=== PATIENT | male | born 1950 | race Caucasian/White ===

== ENCOUNTER 2016-08-08 17:51 | Inpatient (IN) | payer OTHER ==
[~2016-08-08] VITALS: Ht 172.7 cm; Wt 85.0 kg
[~2016-08-08 17:51] MED LIST: CIPROFLOXACIN500 MG PO; PREDNICOT20 MG PO; ROBAXIN750 MG PO; VIBRAMYCIN100 MG PO
[2016-08-08 17:56] VITALS: BP 137/77
[2016-08-08] MEDS ORDERED: VENTOLIN H0.09 MG/AC INH (17:58)
[2016-08-08 18:37] LABS: BASO # 0.1 10*3/uL (0.0-0.1); BASO % 0.9 % (0.0-1.0); EOS # 0.3 10*3/uL (0.0-0.4); HEMATOCRIT 45.6 % (42.0-52.0); HEMOGLOBIN 15.7 g/dl (14.0-18.0); IG # 0.1 10*3/uL (0.0-0.1); LYMPH # 4.6 10*3/uL (1.3-4.4); LYMPH % 32.9 % (27.0-41.0); MEAN CELL VOLUME 96.2 fl (80.0-94.0); MEAN CORPUSCULAR HGB 33.1 pg (27.0-31.0); MEAN CORPUSCULAR HGB CONC 34.4 g/dl (33.0-37.0); MONO # 1.1 10*3/uL (0.1-1.0); NEUT # 7.7 10*3/uL (2.3-7.9); NEUT % 55.8 % (47.0-73.0); PLATELET COUNT AUTOMATED 337 10*3/uL (130-400); RED BLOOD COUNT 4.74 10*6/uL (4.50-5.90); RED CELL DISTRI WIDTH 13.2 % (0-14.5); WHITE BLOOD COUNT 13.8 10*3/uL (4.8-10.8)
[2016-08-08 18:52] LABS: ALBUMIN 3.6 gm/dl (3.1-4.5); ALKALINE PHOSPHATASE 86 U/L (45-117); BILIRUBIN, TOTAL 0.2 mg/dl (0.2-1.0); BUN 13 mg/dl (7-24); C-REACTIVE PROTEIN 2.39 MG/DL (0-0.3); CARBON DIOXIDE 24 mmol/L (21-32); CHLORIDE 107 mmol/L (98-107); EST GLOM FILT AFRICAN AMERICAN > 60 ml/min; GLUCOSE 82 mg/dL (65-99); POTASSIUM 4.1 mmol/L (3.5-5.1); SGOT/AST 18 IU/L (3-35); SGPT/ALT 25 U/L (12-78); SODIUM 142 mmol/L (136-145); TOTAL PROTEIN 7.4 gm/dL (6.4-8.2)
[2016-08-08 18:52] LABS: BILIRUBIN NEGATIVE (NEGATIVE); BLOOD 2+ (NEGATIVE); CLARITY CLEAR (CLEAR); COLOR YELLOW (YELLOW); GLUCOSE NEGATIVE (NEGATIVE); KETONE NEGATIVE (NEGATIVE); LEUKO ESTERASE NEGATIVE (NEGATIVE); NITRITE NEGATIVE (NEGATIVE); PH 5.5 (5.0-9.0); PROTEIN NEGATIVE (NEGATIVE); SPECIFIC GRAVITY <= 1.005 (1.005-1.030); UROBILINOGEN 0.2 E.U./dl (0.2-1.0)
[2016-08-08 19:11] LABS: URINE REFLEX COMMENT YES (NO); WBC 0-2 wbc/hpf (0-5)
[2016-08-08 22:00] VITALS: BP 151/82
[2016-08-09] VITALS: BP 121/78
[2016-08-09 06:15] LABS: BASO # 0.2 10*3/uL (0.0-0.1); BASO % 1.1 % (0.0-1.0); EOS # 0.3 10*3/uL (0.0-0.4); EOS % 2.5 % (1.0-4.0); HEMATOCRIT 49.2 % (42.0-52.0); HEMOGLOBIN 16.7 g/dl (14.0-18.0); IG # 0.1 10*3/uL (0.0-0.1); LYMPH # 3.9 10*3/uL (1.3-4.4); LYMPH % 28.3 % (27.0-41.0); MEAN CELL VOLUME 98.8 fl (80.0-94.0); MEAN CORPUSCULAR HGB 33.5 pg (27.0-31.0); MEAN CORPUSCULAR HGB CONC 33.9 g/dl (33.0-37.0); MEAN PLATELET VOLUME 9.9 fl (9.6-12.3); MONO # 1.2 10*3/uL (0.1-1.0); NEUT # 8.1 10*3/uL (2.3-7.9); NEUT % 58.6 % (47.0-73.0); PLATELET COUNT AUTOMATED 358 10*3/uL (130-400); RED BLOOD COUNT 4.98 10*6/uL (4.50-5.90); RED CELL DISTRI WIDTH 13.2 % (0-14.5); WHITE BLOOD COUNT 13.8 10*3/uL (4.8-10.8)
[2016-08-09 06:48] LABS: BUN 11 mg/dl (7-24); CARBON DIOXIDE 28 mmol/L (21-32); CHLORIDE 106 mmol/L (98-107); EST GLOM FILT AFRICAN AMERICAN > 60 ml/min; FREE T4 0.89 ng/dl (0.76-1.46); GLUCOSE 99 mg/dL (65-99); MAGNESIUM 2.1 mg/dL (1.5-2.1); POTASSIUM 4.3 mmol/L (3.5-5.1); SODIUM 142 mmol/L (136-145)
[2016-08-09 06:49] LABS: INTERNATIONAL NORM RATIO 0.9 (2.0-3.5); PROTHROMBIN TIME 9.9 SECONDS (9.0-12.4)
[2016-08-09 07:21] LABS: FOLIC ACID 17.16 ng/mL (>5.38)
[2016-08-09 08:00] VITALS: BP 112/90
[2016-08-09 12:00] VITALS: BP 134/75
== END 2016-08-09 12:12 | disposition home or self-care (01) | DRG 395 ==
LOC: ED 17:51 → 5E 21:12 → EDHOLD 21:12 → 5E 21:51
PROVIDERS: Internal Medicine Hospice and Palliative Medicine; Physician Assistant
DX: K35.80 Unspecified acute appendicitis (principal); J44.9 Chronic obstructive pulmonary disease, unspecified; F17.210 Nicotine dependence, cigarettes, uncomplicated; Z98.41 Cataract extraction status, right eye; D72.829 Elevated white blood cell count, unspecified; R79.82 Elevated C-reactive protein (CRP); D75.89 Other specified diseases of blood and blood-forming organs; Z71.6 Tobacco abuse counseling; K63.89 Other specified diseases of intestine

== ENCOUNTER → 2017-02-08 | Outpatient (CLI) | payer OTHER ==
[~2017-02-08] MED LIST changes: +VENTOLIN H0.09 MG/AC INH
== END | disposition home or self-care (01) ==
LOC: RAD 11:46
DX: R05 Cough (principal); R06.02 Shortness of breath; Z87.09 Personal history of other diseases of the respiratory system

== ENCOUNTER → 2018-02-26 | Outpatient (CLI) | payer OTHER | END | disposition home or self-care (01) | LOC: RAD 14:17 | DX: J44.9 Chronic obstructive pulmonary disease, unspecified (principal); R05 Cough; R09.89 Other specified symptoms and signs involving the circulatory and respiratory systems; R06.09 Other forms of dyspnea; F17.210 Nicotine dependence, cigarettes, uncomplicated ==

== ENCOUNTER 2018-05-19 11:14 | Emergency (ER) | payer MEDICARE ==
[~2018-05-19] VITALS: Ht 175.2 cm; Wt 89.8 kg
[2018-05-19] MEDS ORDERED: PREDNISONE20 M1 PO ×2 (12:59→13:03)
[2018-05-19] MEDS ORDERED: LEVOFLOXACIN500 MG PO (12:59)
== END 2018-05-19 13:26 | disposition home or self-care (01) ==
LOC: ED 11:14
DX: J18.1 Lobar pneumonia, unspecified organism (principal); J44.9 Chronic obstructive pulmonary disease, unspecified; F17.210 Nicotine dependence, cigarettes, uncomplicated; Z79.899 Other long term (current) drug therapy

== ENCOUNTER → 2019-10-17 | Day surgery (SDC) | payer MEDICARE ==
[~2019-10-17] VITALS: Ht 175.2 cm; Wt 89.4 kg
[~2019-10-17] MED LIST changes: +CRESTOR5 MG PO; +LEVOFLOXACIN500 MG PO; +NORCO 5-325 TA1 EACH PO; +PREDNISONE20 M1 PO; +SPIRIVA RESPIMAT4 GM INH; +SYMB160 INH; +VITAMIN B1250 MCG PO; +VITAMIN D310 MC3 PO
[2019-10-17 07:15] VITALS: BP 120/78
[2019-10-17 08:32] VITALS: BP 124/68
[2019-10-17 08:47] VITALS: BP 124/68
[2019-10-17 09:03] VITALS: BP 135/77
[2019-10-17 09:16] VITALS: BP 135/77
== END | disposition home or self-care (01) ==
LOC: SDC 10-15 11:00
DX: L98.9 Disorder of the skin and subcutaneous tissue, unspecified (principal); J44.9 Chronic obstructive pulmonary disease, unspecified; E78.00 Pure hypercholesterolemia, unspecified; Z98.890 Other specified postprocedural states; Z79.899 Other long term (current) drug therapy; Z87.891 Personal history of nicotine dependence

== ENCOUNTER → 2019-12-24 | Outpatient (CLI) | payer MEDICARE | END | disposition home or self-care (01) | LOC: CARD 15:00 | PROVIDERS: ATTEND Internal Medicine Critical Care Medicine | DX: I27.0 Primary pulmonary hypertension (principal) ==

== ENCOUNTER → 2020-01-06 | Outpatient (CLI) | payer MEDICARE | END | disposition home or self-care (01) | LOC: MRI 12-27 11:00 | DX: I67.82 Cerebral ischemia (principal); H90.41 Sensorineural hearing loss, unilateral, right ear, with unrestricted hearing on the contralateral side ==

== ENCOUNTER 2023-07-11 22:15 | Inpatient (IN) | payer OTHER ==
[~2023-07-11] VITALS: Ht 172.7 cm; Wt 73.5 kg
[2023-07-11 22:15] VITALS: BP 134/76
[2023-07-11] MEDS ORDERED: methylPREDNISolone sod succ 125 MG VIAL IV ONE (22:35)
[2023-07-11 22:49] LABS: HEMATOCRIT 56.4 % (42.0-52.0); MANUAL DIFF REFLEX YES; MEAN CELL VOLUME 100.9 fl (80.0-94.0); MEAN CORPUSCULAR HGB 32.7 pg (27.0-31.0); MEAN CORPUSCULAR HGB CONC 32.4 g/dl (33.0-37.0); MEAN PLATELET VOLUME 9.9 fl (9.6-12.3); PLATELET COUNT AUTOMATED 275 10*3/uL (130-400); RED BLOOD COUNT 5.59 10*6/uL (4.50-5.90); RED CELL DISTRI WIDTH 14.2 % (0-14.5); WHITE BLOOD COUNT 17.5 10*3/uL (4.8-10.8)
[2023-07-11 23:00] VITALS: BP 148/86
[2023-07-11 23:08] LABS: BUN 12 mg/dl (9-23); CHLORIDE 96 mmol/L (98-107); LIPASE 25 U/L (12-53); POTASSIUM 4.6 mmol/L (3.4-5.1)
[2023-07-11 23:22] LABS: PLATELET SUFFICIENCY NORMAL (NORMAL); TOTAL CELLS COUNTED 100 #CELLS
[2023-07-11] MEDS ORDERED: AZITHROMYCIN 250 ML IV ONE (23:30)
[2023-07-11] MEDS ORDERED: Ceftriaxone Sodium 1 GM/10 ML SYR IV ONE (23:30)
[2023-07-11] MEDS ORDERED: SODIUM CHLORIDE 0.9% 1,000 ML IV SCH (23:40)
[2023-07-12] VITALS (7 sets, daily range): BP systolic 93–112; BP diastolic 44–70
[2023-07-12] MEDS ORDERED: TEMAZEPAM 15 MG CAP PO PRN (01:40)
[2023-07-12] MEDS ORDERED: MORPHINE Sulfate 2 MG/ML SYR IV PRN (01:40)
[2023-07-12] MEDS ORDERED: Acetaminophen/Hydrocodone 5 MG/325 MG TABLET PO PRN (01:40)
[2023-07-12] MEDS ORDERED: BISACODYL 5 MG TAB PO PRN (01:40)
[2023-07-12] MEDS ORDERED: ACETAMINOPHEN 325 MG TAB PO PRN (01:40)
[2023-07-12] MEDS ORDERED: Magnesium Hydroxide 30 ML UDC PO PRN (01:40)
[2023-07-12] MEDS ORDERED: ACETAMINOPHEN 650 MG SUPP R PRN (01:40)
[2023-07-12] MEDS ORDERED: BISACODYL 10 MG SUPP R PRN (01:40)
[2023-07-12] MEDS ORDERED: Pantoprazole Sodium 40 MG TAB PO PRN (01:50)
[2023-07-12] MEDS ORDERED: Albuterol Sulf/Ipratropium 3 ML VIAL NEB SCH (01:55)
[2023-07-12] MEDS ORDERED: SODIUM CHLORIDE 0.9% 1,000 ML IV ONE (02:05)
[2023-07-12 07:22] LABS: HEMATOCRIT 56.5 % (42.0-52.0); MEAN CORPUSCULAR HGB 32.8 pg (27.0-31.0); MEAN CORPUSCULAR HGB CONC 31.3 g/dl (33.0-37.0); MEAN PLATELET VOLUME 10.2 fl (9.6-12.3); PLATELET COUNT AUTOMATED 258 10*3/uL (130-400); RED CELL DISTRI WIDTH 14.3 % (0-14.5); WHITE BLOOD COUNT 15.2 10*3/uL (4.8-10.8)
[2023-07-12 07:24] LABS: MANUAL DIFF REFLEX YES; MEAN CELL VOLUME 104.6 fl (80.0-94.0)
[2023-07-12 07:38] LABS: BURR CELLS FEW; PLATELET SUFFICIENCY NORMAL (NORMAL); POLYCHROMASIA SLIGHT; TOTAL CELLS COUNTED 100 #CELLS
[2023-07-12 07:43] LABS: VITAMIN D, 25-HYDROXY 33.3 ng/mL (30-100)
[2023-07-12 08:00] LABS: ALKALINE PHOSPHATASE 99 U/L (46-116); BUN 12 mg/dl (9-23); CHLORIDE 101 mmol/L (98-107); CHOLESTEROL 153 mg/dL (<200); LDL CHOLESTEROL 95 mg/dL (9-159); POTASSIUM 5.4 mmol/L (3.4-5.1); SGPT/ALT 10 U/L (5-49); TOTAL PROTEIN 6.7 gm/dL (6.0-8.0); TRIGLYCERIDES 48 mg/dl (<150)
[2023-07-12] MEDS ORDERED: methylPREDNISolone sod succ 40 MG VIAL IV SCH (10:00)
[2023-07-12] MEDS ORDERED: Enoxaparin Sodium 40 MG/0.4 ML SYR SC SCH (10:00)
[2023-07-12] MEDS ORDERED: GUAIFENESIN 600 MG TAB ER PO SCH (10:00)
[2023-07-12] MEDS ORDERED: Ceftriaxone Sodium 1 GM in SYRINGE INFUSION 10 ML IV SCH (22:00)
[2023-07-12] MEDS ORDERED: AZITHROMYCIN 250 ML IV SCH (22:00)
[2023-07-13] VITALS: BP 102/76
[2023-07-13] MEDS ORDERED: Ondansetron Hydrochloride 4 MG/2 ML VIAL IV PRN (05:15)
[2023-07-13 08:00] VITALS: BP 115/64
[2023-07-13] MEDS ORDERED: FUROSEMIDE 40 MG/4 ML VIAL IV SCH (10:35)
[2023-07-13] MEDS ORDERED: PRILOSEC20 M1 PO (11:02)
[2023-07-13] MEDS ORDERED: BUDESONIDE 0.5 MG AMP NEB SCH (11:15)
[2023-07-13 11:16] LABS: MEAN CELL VOLUME 104.3 fl (80.0-94.0); MEAN CORPUSCULAR HGB 33.1 pg (27.0-31.0); MEAN CORPUSCULAR HGB CONC 31.7 g/dl (33.0-37.0); MEAN PLATELET VOLUME 10.3 fl (9.6-12.3); PLATELET COUNT AUTOMATED 249 10*3/uL (130-400); RED BLOOD COUNT 5.08 10*6/uL (4.50-5.90); RED CELL DISTRI WIDTH 14.3 % (0-14.5); WHITE BLOOD COUNT 15.9 10*3/uL (4.8-10.8)
[2023-07-13 11:20] LABS: MANUAL DIFF REFLEX YES
[2023-07-13 11:34] LABS: PLATELET SUFFICIENCY NORMAL (NORMAL); TOTAL CELLS COUNTED 100 #CELLS
[2023-07-13 11:35] LABS: BUN 19 mg/dl (9-23); CHLORIDE 97 mmol/L (98-107); POTASSIUM 5.6 mmol/L (3.4-5.1)
[2023-07-13 12:00] VITALS: BP 90/41
[2023-07-13 16:00] VITALS: BP 99/48
[2023-07-13 20:00] VITALS: BP 102/50
[2023-07-13] MEDS ORDERED: ATORVASTATIN CALCIUM 40 MG TABLET PO SCH (22:00)
[2023-07-14] VITALS: BP 102/63; BP 105/54
[2023-07-14 06:07] LABS: BASO % 0.2 % (0.0-1.0); EOS # 0.1 10*3/uL (0.0-0.4); EOS % 0.6 % (1.0-4.0); HEMATOCRIT 53.8 % (42.0-52.0); LYMPH # 0.5 10*3/uL (1.3-4.4); LYMPH % 3.9 % (27.0-41.0); MEAN CELL VOLUME 105.7 fl (80.0-94.0); MEAN CORPUSCULAR HGB CONC 31.2 g/dl (33.0-37.0); MEAN PLATELET VOLUME 10.5 fl (9.6-12.3); MONO # 0.6 10*3/uL (0.1-1.0); MONO % 4.8 % (3.0-9.0); NEUT # 11.9 10*3/uL (2.3-7.9); NEUT % 89.8 % (47.0-73.0); PLATELET COUNT AUTOMATED 264 10*3/uL (130-400); RED BLOOD COUNT 5.09 10*6/uL (4.50-5.90); RED CELL DISTRI WIDTH 14.3 % (0-14.5); WHITE BLOOD COUNT 13.2 10*3/uL (4.8-10.8)
[2023-07-14 06:21] LABS: BUN 18 mg/dl (9-23); CHLORIDE 96 mmol/L (98-107); POTASSIUM 5.6 mmol/L (3.4-5.1)
[2023-07-14] MEDS ORDERED: OMEPRAZOLE 20 MG CAP PO SCH (07:30)
[2023-07-14 08:00] VITALS: BP 90/42
[2023-07-14] MEDS ORDERED: SODIUM POLYSTYRENE SULFONATE 15 GM/60 ML BOT PO ONE (08:25)
[2023-07-14] MEDS ORDERED: Budesonide/Formoterol Fumarate 160/4.5 inhaler INH SCH (10:00)
[2023-07-14] MEDS ORDERED: MAGNESIUM SULFATE 50 ML IV ONE (11:15)
[2023-07-14 12:00] VITALS: BP 108/65
[2023-07-14 16:00] VITALS: BP 107/73
[2023-07-14 20:00] VITALS: BP 97/56
[2023-07-14] MEDS ORDERED: methylPREDNISolone sod succ 125 MG VIAL IV SCH (22:00)
[2023-07-15] VITALS: BP 121/62
[2023-07-15 06:45] LABS: BUN 18 mg/dl (9-23); CHLORIDE 90 mmol/L (98-107); POTASSIUM 4.8 mmol/L (3.4-5.1)
[2023-07-15 06:48] LABS: BASO % 0.1 % (0.0-1.0); EOS # 0.1 10*3/uL (0.0-0.4); EOS % 0.5 % (1.0-4.0); HEMATOCRIT 55.7 % (42.0-52.0); LYMPH # 0.5 10*3/uL (1.3-4.4); LYMPH % 5.3 % (27.0-41.0); MEAN CELL VOLUME 104.1 fl (80.0-94.0); MEAN CORPUSCULAR HGB 32.5 pg (27.0-31.0); MEAN CORPUSCULAR HGB CONC 31.2 g/dl (33.0-37.0); MEAN PLATELET VOLUME 10.4 fl (9.6-12.3); MONO # 0.4 10*3/uL (0.1-1.0); MONO % 4.7 % (3.0-9.0); NEUT # 8.4 10*3/uL (2.3-7.9); NEUT % 88.9 % (47.0-73.0); PLATELET COUNT AUTOMATED 268 10*3/uL (130-400); RED BLOOD COUNT 5.35 10*6/uL (4.50-5.90); RED CELL DISTRI WIDTH 13.7 % (0-14.5); WHITE BLOOD COUNT 9.4 10*3/uL (4.8-10.8)
[2023-07-15 08:00] VITALS: BP 112/60
[2023-07-15 12:00] VITALS: BP 113/91
[2023-07-15 16:00] VITALS: BP 113/68
[2023-07-15 20:00] VITALS: BP 116/67
[2023-07-16] VITALS: BP 120/49
[2023-07-16 06:26] LABS: BUN 17 mg/dl (9-23); CHLORIDE 93 mmol/L (98-107); POTASSIUM 4.9 mmol/L (3.4-5.1)
[2023-07-16 06:27] LABS: BASO % 0.1 % (0.0-1.0); EOS % 0.4 % (1.0-4.0); HEMATOCRIT 57.3 % (42.0-52.0); LYMPH # 0.6 10*3/uL (1.3-4.4); LYMPH % 7.4 % (27.0-41.0); MEAN CELL VOLUME 103.1 fl (80.0-94.0); MEAN CORPUSCULAR HGB 32.7 pg (27.0-31.0); MEAN CORPUSCULAR HGB CONC 31.8 g/dl (33.0-37.0); MEAN PLATELET VOLUME 10.4 fl (9.6-12.3); MONO # 0.5 10*3/uL (0.1-1.0); MONO % 6.5 % (3.0-9.0); NEUT # 6.5 10*3/uL (2.3-7.9); NEUT % 85.2 % (47.0-73.0); PLATELET COUNT AUTOMATED 273 10*3/uL (130-400); RED BLOOD COUNT 5.56 10*6/uL (4.50-5.90); RED CELL DISTRI WIDTH 13.5 % (0-14.5); WHITE BLOOD COUNT 7.6 10*3/uL (4.8-10.8)
[2023-07-16 08:00] VITALS: BP 102/58
[2023-07-16 12:00] VITALS: BP 105/55
[2023-07-16 16:00] VITALS: BP 111/63
[2023-07-16 20:00] VITALS: BP 107/55
[2023-07-17] VITALS: BP 120/66
[2023-07-17 06:34] LABS: BASO % 0.1 % (0.0-1.0); EOS % 0.2 % (1.0-4.0); HEMATOCRIT 56.2 % (42.0-52.0); LYMPH # 0.7 10*3/uL (1.3-4.4); LYMPH % 6.5 % (27.0-41.0); MEAN CELL VOLUME 101.4 fl (80.0-94.0); MEAN CORPUSCULAR HGB 32.3 pg (27.0-31.0); MEAN CORPUSCULAR HGB CONC 31.9 g/dl (33.0-37.0); MEAN PLATELET VOLUME 10.2 fl (9.6-12.3); MONO % 8.7 % (3.0-9.0); NEUT # 9.5 10*3/uL (2.3-7.9); NEUT % 84.1 % (47.0-73.0); PLATELET COUNT AUTOMATED 289 10*3/uL (130-400); RED BLOOD COUNT 5.54 10*6/uL (4.50-5.90); RED CELL DISTRI WIDTH 13.3 % (0-14.5); WHITE BLOOD COUNT 11.3 10*3/uL (4.8-10.8)
[2023-07-17 07:01] LABS: BUN 23 mg/dl (9-23); CHLORIDE 95 mmol/L (98-107); POTASSIUM 4.7 mmol/L (3.4-5.1)
[2023-07-17 08:00] VITALS: BP 135/79
[2023-07-17 12:00] VITALS: BP 128/73
[2023-07-17 16:00] VITALS: BP 132/81
[2023-07-17 20:00] VITALS: BP 102/65
[2023-07-18] VITALS: BP 102/70
[2023-07-18 06:15] LABS: BUN 20 mg/dl (9-23); CHLORIDE 96 mmol/L (98-107); POTASSIUM 4.7 mmol/L (3.4-5.1)
[2023-07-18 06:31] LABS: BASO % 0.2 % (0.0-1.0); EOS % 0.1 % (1.0-4.0); HEMATOCRIT 55.8 % (42.0-52.0); LYMPH # 0.6 10*3/uL (1.3-4.4); LYMPH % 5.3 % (27.0-41.0); MEAN CELL VOLUME 102.2 fl (80.0-94.0); MEAN CORPUSCULAR HGB 32.4 pg (27.0-31.0); MEAN CORPUSCULAR HGB CONC 31.7 g/dl (33.0-37.0); MONO # 0.7 10*3/uL (0.1-1.0); MONO % 6.3 % (3.0-9.0); NEUT # 9.3 10*3/uL (2.3-7.9); NEUT % 87.8 % (47.0-73.0); PLATELET COUNT AUTOMATED 227 10*3/uL (130-400); RED BLOOD COUNT 5.46 10*6/uL (4.50-5.90); RED CELL DISTRI WIDTH 13.5 % (0-14.5); WHITE BLOOD COUNT 10.6 10*3/uL (4.8-10.8)
[2023-07-18 08:00] VITALS: BP 101/64
[2023-07-18 12:00] VITALS: BP 113/74
[2023-07-18] MEDS ORDERED: PREDNISONE10 MG PO (12:02)
[2023-07-18 16:00] VITALS: BP 117/73
[2023-07-18 20:00] VITALS: BP 119/70
[2023-07-19] VITALS: BP 107/72
[2023-07-19 06:42] LABS: BUN 20 mg/dl (9-23); CHLORIDE 98 mmol/L (98-107); POTASSIUM 4.7 mmol/L (3.4-5.1)
[2023-07-19 06:44] LABS: HEMATOCRIT 56.4 % (42.0-52.0); MEAN CELL VOLUME 101.6 fl (80.0-94.0); MEAN CORPUSCULAR HGB 32.6 pg (27.0-31.0); MEAN CORPUSCULAR HGB CONC 32.1 g/dl (33.0-37.0); MEAN PLATELET VOLUME 10.4 fl (9.6-12.3); PLATELET COUNT AUTOMATED 279 10*3/uL (130-400); RED BLOOD COUNT 5.55 10*6/uL (4.50-5.90); RED CELL DISTRI WIDTH 13.3 % (0-14.5); WHITE BLOOD COUNT 12.9 10*3/uL (4.8-10.8)
[2023-07-19 06:47] LABS: MANUAL DIFF REFLEX YES
[2023-07-19 07:53] LABS: TOTAL CELLS COUNTED 100 #CELLS
[2023-07-19 07:54] LABS: PLATELET SUFFICIENCY NORMAL (NORMAL); POLYCHROMASIA SLIGHT; TOXIC GRANULATION SLIGHT
[2023-07-19 08:00] VITALS: BP 105/59
== END 2023-07-19 15:20 | disposition home or self-care (01) | DRG 871 ==
LOC: ED 22:15 → EDHOLD 07-12 01:01 → 4E 07-12 01:01 → EDHOLD 07-12 01:50 → 4E 07-12 14:23
PROVIDERS: Internal Medicine; Student in an Organized Health Care Education/Training Program; ADMIT Internal Medicine; ATTEND Internal Medicine
PROC: 5A09357 Assistance with Respiratory Ventilation, Less than 24 Consecutive Hours, Continuous Positive Airway Pressure (ICD-10-PCS; principal; 2023-07-12)
PROC: 5A09357 Assistance with Respiratory Ventilation, Less than 24 Consecutive Hours, Continuous Positive Airway Pressure (ICD-10-PCS; 2023-07-17)
DX: A41.9 Sepsis, unspecified organism (principal); J18.9 Pneumonia, unspecified organism; J96.00 Acute respiratory failure, unspecified whether with hypoxia or hypercapnia; J44.0 Chronic obstructive pulmonary disease with (acute) lower respiratory infection; J44.1 Chronic obstructive pulmonary disease with (acute) exacerbation; E87.1 Hypo-osmolality and hyponatremia; J90 Pleural effusion, not elsewhere classified; E78.5 Hyperlipidemia, unspecified; D75.89 Other specified diseases of blood and blood-forming organs; R73.9 Hyperglycemia, unspecified; Z98.41 Cataract extraction status, right eye; Z83.6 Family history of other diseases of the respiratory system

== ENCOUNTER → 2023-08-03 | Outpatient (CLI) | payer OTHER ==
[~2023-08-03] MED LIST changes: +IOHEXOL 300 MG/ML 100 ML VIAL IV ONE; +PREDNISONE10 MG PO; +PRILOSEC20 M1 PO
== END | disposition home or self-care (01) ==
LOC: CT 01:25
PROVIDERS: ATTEND Physician Assistant
DX: K86.89 Other specified diseases of pancreas (principal); K57.30 Diverticulosis of large intestine without perforation or abscess without bleeding; K57.10 Diverticulosis of small intestine without perforation or abscess without bleeding; K42.9 Umbilical hernia without obstruction or gangrene; I77.811 Abdominal aortic ectasia; K22.70 Barrett's esophagus without dysplasia; R63.4 Abnormal weight loss; F17.210 Nicotine dependence, cigarettes, uncomplicated

== ENCOUNTER → 2023-08-17 | Outpatient (CLI) | payer OTHER | END | disposition home or self-care (01) | LOC: CT 01:53 | PROVIDERS: ATTEND Physician Assistant | DX: J43.9 Emphysema, unspecified (principal); R91.8 Other nonspecific abnormal finding of lung field; K57.30 Diverticulosis of large intestine without perforation or abscess without bleeding; J98.11 Atelectasis ==